=== PATIENT | female | born 1950 | race Caucasian/White ===

== ENCOUNTER 2016-10-07 20:35 | Outpatient (CLI) | payer MEDICARE ==
[~2016-10-07 20:35] MED LIST: ACHD5005 PO; ADV1DS; ALBU17AE23; ALBU17AE23 IH; AMT50T; AZIT-21 PO; AZTH250C PO; BACL10TA; BACL10TA PO; BCL10T; BUME1TAB4 PO; CALC-656 PO; CALC-754 PO; CEFP200T2 PO; CEFP500T4 PO; CEPH500C PO; CFP200T PO; CHOL20002 PO; CHRO1000 PO; CITA10TA12 PO; CITA20TA7 PO; CLAR-19; CLIN300C3 PO; CLON1TAB36; CLON1TAB36 PO; CPR500T PO; CYAN500T44 PO; Coumadin PO; DCS100C PO; DICY10CA26; DIVA500T PO; DOXE25CA2 PO; DOXY-182 PO; DULO30CA; DULO60CA6 PO; DVL500TEC; Duloxetine Hcl PO; FAMO20TA5 PO; FLC1T; FLC1T PO; FLINTSTONE1 TAB.CHE4; FLT05NA16; FLT05NA16 NSEACH; FLUC50TA PO; FLUT12AE4; FLUT12AE4 IH; FLUT16SP22 NS; FLUT1DIS26 IH; FLUT1DIS26 INH; FLX20C; FOLI1TAB24 PO; FORSKOLIN PO; FRSM40T; FURO40TA4; FURO40TA4 PO; GABA-488 PO; GABA300C PO; GABA300T; GARCINIA CAMBOGIA PO; GBPN100C PO; GBPN300C PO; GBPN400C PO; GBPN600T; HERB1CAP2 PO; HYDR-2997 PO; HYDR-34; HYDR-34 PO; HYDR-3812 PO; HYDR-757 PO; HYDR118S10 PO; HYDR1CAP2 PO; IPRA3AMP IH; KCL20TCR; KCL20TCR PO; L.AC1CAP6 PO; LEVO200T6 PO; LEVO250T7 PO; LEVO25TA5 PO; LEVO500T80 PO; LEVO750T24 PO; LINA145C PO; LISI20TA; LISI20TA2 PO; LISI5TAB14; LSNP20T; LVT.05T PO; LVT.1T PO; MAGN400T6 PO; METF1000 PO; METF500T4 PO; METH4TAB PO; METO-272 PO; METO10TA3; METO10TA3 PO; METO5TAB38 PO; MMT17NA NS; MORP60TA12 PO; MORP60TA28 PO; MOXI400T2 PO; MTP50T PO; MULT-608 PO; MULT-68 PO; MULT1CAP27 PO; NIAC-4 PO; NIAC500T24 PO; NITR0.3T6 SL; NITR0.4T SL; NITR0.4T39 SL; NTR.4SL; NTR.4SL SL; OMEG1CAP58 PO; OMEP10CA4 PO; OMEP20CA12 PO; OMEP20CA6 PO; OMEP40CA36 PO; ONDA4TAB10 PO; OXC20TCR; OXYC-12 PO; OXYC10TA8; OXYC1TAB95 PO; OXYC20TA63; OXYC5SOL19 PO; OXYGEN; PANT40TA; PANT40TA3 PO; PENI250T4 PO; PERCOCET; PIOG15TA22 PO; PIOG15TA9 PO; POTA20PA3 PO; POTA20TA15 PO; PRD10T; PRD10T PO; PRD20T PO; RNT150T; RNT150T PO; RT-ALBUINH IH; SCR1T1 PO; SIME125T PO; SPIR25TA PO; SPIR25TA3 PO; SPIR50TA2 PO; SULF1TAB38 PO; TIOT18CA IH; TIOT18CA2 IH; TRAM50TA2 PO; TRAZ100T92 PO; TRAZ150T42 PO; TRZ100T PO; VENTOLIN INHALER; VITA150T PO; WARF-48 PO; WARF2.5T82 PO; WARF3TAB6 PO; WARF4TAB PO; WRF2.5T; WRF2.5T PO; WRF5T PO
== END 2016-10-08 06:35 | disposition home or self-care (01) ==
LOC: SLEEP 20:35
PROVIDERS: ATTEND Nurse Practitioner Family
DX: G47.33 Obstructive sleep apnea (adult) (pediatric) (principal)
CPT/HCPCS: 95811

== ENCOUNTER → 2016-10-17 | Outpatient (CLI) | payer MEDICARE ==
--- NOTE | 2016-10-18 20:53 | Diagnostic Imaging Report ---
Bilateral screening mammogram. The current study was also evaluated with a Computer Aided Detection (CAD) system. INDICATION: Screening. No current complaints stated on the questionnaire. COMPARISON: 09/26/2013. FINDINGS: The breasts are composed of scattered fibroglandular densities. There are occasional benign-appearing calcifications. No mass, architectural distortion or suspicious cluster of calcifications seen. Allowing for technique and positional differences, no suspicious change is seen. IMPRESSION: No significant change. ACR BI-RADS Category 2: Benign findings. Result letter will be mailed to the patient. Note: At least 10% of breast cancer is not imaged by mammography. Dictated by: Dictated on workstation # [id number]
== END ==
LOC: RAD 14:43
PROVIDERS: ATTEND Family Medicine
DX: Z12.31 Encounter for screening mammogram for malignant neoplasm of breast (principal)
CPT/HCPCS: 77067

== ENCOUNTER → 2018-05-23 | Outpatient (CLI) | payer MEDICARE ==
[~2018-05-23] MED LIST changes: -CITA20TA7 PO; +CITA20TA9 PO; -HYDR-3812 PO; +HYDR-4226 PO; -HYDR-757 PO; -IPRA3AMP IH; +IPRA3AMP31 IH; +METF-397 PO; +METF-399 PO; -METF1000 PO; -METF500T4 PO; -METO-272 PO; +METO-370 PO; -PIOG15TA22 PO; +PIOG15TA67 PO; +RT-ALBUTEROL SULF 2.5 MG/3 ML PRE-MIX VIAL INH ONE; -SPIR25TA3 PO; +SPIR25TA5 PO; -SPIR50TA2 PO; +SPIR50TA4 PO; +TRAZ-190 PO; -TRAZ100T92 PO; +WARF3TAB56 PO; -WARF3TAB6 PO
== END ==
LOC: RT 11:42
PROVIDERS: ATTEND Nurse Practitioner Family
DX: J45.909 Unspecified asthma, uncomplicated (principal); J44.9 Chronic obstructive pulmonary disease, unspecified; R09.02 Hypoxemia; G47.33 Obstructive sleep apnea (adult) (pediatric); R06.02 Shortness of breath
CPT/HCPCS: 94060; 94726; 94729

== ENCOUNTER → 2018-11-23 | Outpatient (CLI) | payer MEDICAID, MEDICARE ==
[~2018-11-23] MED LIST changes: -RT-ALBUTEROL SULF 2.5 MG/3 ML PRE-MIX VIAL INH ONE
[2018-11-23 10:20] LABS: BASOPHILS % (AUTO) 0 % (0-10); EOSINOPHILS # (AUTO) 0.2 10^3/uL (0.0-0.3); EOSINOPHILS % (AUTO) 3 % (0-10); HEMATOCRIT 36 % (35-52); HEMOGLOBIN 11.6 G/DL (11.5-16.0); LYMPHOCYTES # (AUTO) 1.1 X 10^3 (1.0-4.0); LYMPHOCYTES % (AUTO) 22 % (12-44); MEAN CORPUSCULAR HEMOGLOBIN 33 PG (25-34); MEAN CORPUSCULAR HGB CONC 32 G/DL (32-36); MEAN CORPUSCULAR VOLUME 103 FL (80-99); MEAN PLATELET VOLUME 9.5 FL (7.4-10.4); MONOCYTES # (AUTO) 0.4 X 10^3 (0.0-1.0); MONOCYTES % (AUTO) 9 % (0-12); NEUTROPHILS # (AUTO) 3.3 X 10^3 (1.8-7.8); NEUTROPHILS % (AUTO) 66 % (42-75); PLATELET COUNT 178 10^3/uL (130-400); RED CELL DISTRIBUTION WIDTH 14.3 % (10.0-14.5)
[2018-11-23 10:39] LABS: ALBUMIN 4.1 GM/DL (3.2-4.5); BILIRUBIN,TOTAL 0.5 MG/DL (0.1-1.0); CALCIUM 8.9 MG/DL (8.5-10.1); CREATININE SERUM 1.27 MG/DL (0.60-1.30); MAGNESIUM 1.8 MG/DL (1.8-2.4); POTASSIUM 3.8 MMOL/L (3.6-5.0)
[2018-11-23 10:45] LABS: ERYTHROCYTE SEDIMENTATION RATE 44 MM/HR (0-30)
== END ==
LOC: CARD 09:47
PROVIDERS: ATTEND Internal Medicine Cardiovascular Disease
DX: R00.2 Palpitations (principal); R06.02 Shortness of breath; G47.33 Obstructive sleep apnea (adult) (pediatric); N18.3 Chronic kidney disease, stage 3 (moderate); J84.17 Other interstitial pulmonary diseases with fibrosis in diseases classified elsewhere
CPT/HCPCS: 36415; 80053; 83735; 84443; 85025; 85652; 93225; 93226

== ENCOUNTER → 2018-11-27 | Outpatient (CLI) | payer MEDICAID, MEDICARE | LOC: CARD 12:50 | PROVIDERS: ATTEND Internal Medicine Cardiovascular Disease | DX: R00.2 Palpitations (principal); R06.02 Shortness of breath; G47.33 Obstructive sleep apnea (adult) (pediatric); N18.3 Chronic kidney disease, stage 3 (moderate); J84.17 Other interstitial pulmonary diseases with fibrosis in diseases classified elsewhere | CPT/HCPCS: 93306 ==

== ENCOUNTER → 2019-04-23 | Outpatient (CLI) | payer MEDICARE, MEDICAID ==
[~2019-04-23] MED LIST changes: -BUME1TAB4 PO; +BUME1TAB8 PO; +CATHETER FLUSH 10 ML SYR IV PRN; +REGADENOSON 0.4 MG/5 ML SYR (LEXISCAN) IV ONE
[2019-04-23 13:02] VITALS: BP 154/92
--- NOTE | 2019-04-26 15:56 | STRESS TEST ---
DATE OF SERVICE: 04/23/2019 RESTING AND POST REGADENOSON TECHNETIUM-99M TETROFOSMIN SPECT CT IMAGING ORDERING PHYSICIAN: Dr. Ospina. PRIMARY PHYSICIAN: ABAD Almeida Baseline images were carried out after injection of 10.97 mCi of technetium-99m Tetrofosmin. This was followed by 0.4 mg regadenoson and 32.6 mCi of technetium-99m Tetrofosmin for stress imaging. The electrocardiogram showed sinus rhythm at baseline. The electrocardiogram did not change significantly with regadenoson infusion. Review of images at rest and following stress does not indicate any distinct perfusion defects consistent with significant myocardial ischemia or infarction. Gated images show normal global left ventricular systolic function with normal regional wall motion. Left ventricular ejection fraction is calculated to be 69%. Left ventricular end diastolic volume 63 mL. TID is absent (1.02). CONCLUSIONS: 1. This study does not indicate significant myocardial ischemia or infarction. 2. Normal regional wall motion. 3. Normal global left ventricular systolic function with a calculated ejection fraction of 69%. Job ID: [id number] DocumentID: [id number] Dictated Date: 04/26/2019 14:47:23 Executive Associate Date: 04/26/2019 15:55:32 Dictated By: ZAK OSPINA MD, MA, FACP, FACC,
== END ==
LOC: CARD 11:07
PROVIDERS: ATTEND Internal Medicine Cardiovascular Disease
DX: G47.33 Obstructive sleep apnea (adult) (pediatric) (principal); R00.2 Palpitations; R06.02 Shortness of breath
CPT/HCPCS: 78452; 93017

== ENCOUNTER 2019-05-29 12:35 | Emergency (ER) | payer MEDICARE, MEDICAID ==
[~2019-05-29] VITALS: Ht 165.1 cm; Wt 115.0 kg
[~2019-05-29 12:35] MED LIST changes: -CATHETER FLUSH 10 ML SYR IV PRN; -REGADENOSON 0.4 MG/5 ML SYR (LEXISCAN) IV ONE
[2019-05-29] MEDS ORDERED: KETOROLAC 30 MG/ML VIAL IM STA (13:24)
--- NOTE | 2019-05-29 13:31 | NUR ---
Techs in room for ultrasound at this time.
--- NOTE | 2019-05-29 13:42 | ED Lower Extremity ---
General Chief Complaint: Lower Extremity Stated Complaint: R LEG PAIN Nursing Triage Note: Ambulatory with walker. Pt reports having SI joint fused approximately one month ago. Pt c/o pain that begins in glute that goes through knee and down to calf. Pt reports pain was periodic after surgery, and pain is now constant and unbearable. Pt reports taking baclofen, and Percocet 10 mg at 0600 with no relief. Pt reports calling Dr. Manuel and PCP and was told to come to ED. Nursing Sepsis Screen: No Definite Risk Source: patient Exam Limitations: no limitations (FLAVIA ZAVALA) History of Present Illness Date Seen by Provider: May 29, 2019 Time Seen by Provider: 13:05 Initial Comments This is a 68 y/o female who presents to the ED with 1.5 wks of RLE pain. She describes the pain as a "deep, intense and constant" and located above and bellow the knee. States exacerbation of pain with touch but not with movement. Reports she has been taking Percocet and Baclofen Q6hrs + ice pack and elevation with no relief. Notes her pain increased since yesterday [facility] and [facility] around more than she usually does. Denies any locking sensation or crepitus in the knee. She has had ortho surgery 4 wks ago to "fuse my SI joint on the Right" any has had decreased activity level since then. Has followed up with her surgeon a week ago regarding her pain; they did an U/S of the leg though she reports she "never got the result back and assumed it wasn't a blood clot". After persistent pain, she reorts she again called her surgeon and PCP and was told to go to the ED. Pt has had multiple PEs in the past and was started back on Warfarin last week. Also notes she has had an episode of fever and chills a few days ago which was self limited. Also says she has had increase SOB and cough for which she was given steroids by her PCP with not much relief. Onset: last week Pain/Injury Location: right leg Modifying Factors: Worse With Cold Therapy, Worse With Immobilization, Worse With Pain Medication (FLAVIA ZAVALA) Initial Comments Here with report of pain to the posterior lower leg on the right in the area of the of her calf muscle. Pain seems to radiate up to the knee. Does have history of DVT but is on warfarin. She also has a Joanne filter in place. She did undergo surgery about 4 weeks ago on her sacrum. Does have history of left knee replacement. This right knee feels bad, like her left knee did but not near as b ad. Method of Injury: other (no identified trauma or injury) Modifying Factors: Worse With Movement; Improves With Other (not relieved by ice packs or pain medication.) (TYREE ERIC MD) Allergies and Home Medications Allergies Coded Allergies: Aripiprazole (Verified Allergy, Severe, 09/07/11) topiramate (Verified Allergy, Severe, 09/07/11) Diclofenac (Verified Allergy, Mild, NAUSEA, 09/07/11) DIZZINESS, N/V, FAINTING, REALLY ILL Home Medications Albuterol Sulfate 18 Gm Hfa.aer.ad, 2 PUFF IH Q4H PRN for SHORTNESS OF BREATH, (Reported) Cholecalciferol (Vitamin D3) 2,000 Unit Capsule, 2,000 UNIT PO DAILY, (Reported) Citalopram Hydrobromide 20 Mg Tablet, 20 MG PO DAILY, (Reported) Fluticasone/Salmeterol 1 Disk Inhp, 1 PUFF INH BID, (Reported) LAST FILLED 06-27-15 FOR 90 DAY SUPPLY Folic Acid 1 Mg Tablet, 1 MG PO DAILY, (Reported) Gabapentin 300 Mg Capsule, 300 MG PO TID, (Reported) Herbal Drugs 1 Each Capsule, 1 CAP PO DAILY PRN for REGULARITY, (Reported) Hydrocodone Bit/Acetaminophen 1 Each Tablet, 1 TAB PO TID PRN for PAIN, (Reported) L.acidoph & Paracasei,B.lactis 1 Each Capsule, 1 CAP PO DAILY, (Reported) Levothyroxine Sodium 200 Mcg Tablet, 200 MCG PO DAILY, (Reported) TAKES ALONG WITH 25MCG TABLET Levothyroxine Sodium 25 Mcg Tablet, 25 MCG PO DAILY, (Reported) TAKES ALONG WITH 200MCG TABLET Linaclotide 145 Mcg Capsule, 145 MCG PO DAILY PRN for CONSTIPATION, (Reported) Magnesium Oxide 400 Mg Tablet, 400 MG PO BID, (Reported) Metoprolol Succinate 50 Mg Tab.er.24h, 50 MG PO DAILY, (Reported) Mometasone Furoate 17 Gm Naspr, 2 SPRAY NS BID, (Reported) LAST FILLED 06-27-15 FOR 90 DAY SUPPLY Niacin 500 Mg Tab.er.24h, 500 MG PO HS, (Reported) Nitroglycerin 0.4 Mg Tab.subl, 0.4 MG SL UD PRN for CHEST PAIN, (Reported) [place]-3 Fatty Acids/Fish Oil 1 Each Capsule, 1,000 MG PO DAILY, (Reported) Ondansetron HCl 4 Mg Tablet, 4 MG PO Q4H PRN for NAUSEA/VOMITING, (Reported) Oxycodone HCl 5 Mg/5 Ml Solution, 5-10 ML PO EVERY 4-6 HOURS PRN for PAIN, (Reported) Pantoprazole Sodium 40 Mg Tablet.dr, 40 MG PO DAILY, (Reported) Potassium Chloride 20 Meq Tab.er.prt, 40 MEQ PO BID, (Reported) TAKES 2 (20MEQ) TABLETS Tiotropium [place] 1 Inh Aerp, 1 CAP IH DAILY, (Reported) LAST FILLED 06-27-15 FOR 90 DAY SUPPLY Trazodone HCl 100 Mg Tablet, 200 MG PO HS, (Reported) TAKE 2 (100MG) TABS Vitamin B Complex & Vit C No.4 150 Mg Tablet, 150 MG PO DAILY, (Reported) Warfarin Sodium 5 Mg Tablet, 5 MG PO SuWeFr, (Reported) Warfarin Sodium 3 Mg Tablet, 3 MG PO MoTuThSa, (Reported) [Forskolin] , 1 CAP PO DAILY, (Reported) Patient Home Medication List Home Medication List Reviewed: Yes (TYREE ERIC MD) Review of Systems Constitutional: No chills, No diaphoresis, No fever, No malaise Respiratory: cough (chronic); No hemoptysis; short of breath (chronic) Cardiovascular: No chest pain, No edema, No palpitations Musculoskeletal: No back pain, No gout; other (RLE pain) Skin: No change in color, No dryness, No rash Psychiatric/Neurological: Denies Anxiety, Denies Depressed (FLAVIA ZAVALA) Cardiovascular: No chest pain, No edema (TYREE ERIC MD) All Other Systems Reviewed Negative Unless Noted: Yes (TYREE ERIC MD) Past Ofeotbd-Qeobtd-Gpuhth Hx Past Med/Social Hx: Reviewed Nursing Past Med/Soc Hx (TYREE ERIC MD) Patient Social History Alcohol Use: Denies Use Recreational Drug Use: Yes (HX OF COCAINE ABUSE ET POLYSUBSTANCE ABUSE IN THE 70'S ET 80'S) Smoking Status: Never a Smoker 2nd Hand Smoke Exposure: No Recent Foreign Travel: No Contact w/Someone Who Travel: No Recent Infectious Disease Expo: No Recent Hopitalizations: Yes [facility]fused SI joint) [facility] Immunizations Up To Date Tetanus Booster (TDap): Unknown Date of Pneumonia Vaccine: Mar 24, 2015 Date of Influenza Vaccine: Jul 24, 2015 ([facility] Past Medical History Surgeries: Yes (LEFT KNEE- CANCER, LIPOSARCOMA, LEFT FOOT- NEUROMA X2, IN SITU CA ON BACK. ) Orthopedic Respiratory: Yes (CPAP, HX 6 PE'S, PULM HTN, HAS O2 BUT HASNT NEEDED IT) Asthma, Pulmonary Embolism, Sleep Apnea, COPD Currently Using CPAP: Yes Cardiac: Yes (CHF IN REMISSION) Neurological: Yes (stroke x2-R VOCAL CORD, MEMORY, WORD RECALL EFFECTED) Stroke Reproductive Disorders: No (HX OF HYSTERECTOMY- OVARIES REMOVED) Sexually Transmitted Disease: No HIV/AIDS: No Kidney Infection Gastrointestinal: Yes Gastroesophageal Reflux, Diverticulosis, Chronic Diarrhea, Hiatal Hernia Musculoskeletal: Yes (SPINAL STENOSIS) Arthritis, Fibromyalgia, Chronic Back Pain Endocrine: Yes Hypothyroidsim, Diabetes, Non-Insulin dep Loss of Vision: Bilateral Hearing Impairment: Denies Cancer: Yes (MYLOMA, LIPOSARCOMA) Melanoma, Thyroid Psychosocial: Yes ( ) Anxiety, Depression Integumentary: No Blood Disorders: Yes (P.E., HX OF ANEMIA) Adverse Reaction/Blood Tranf: No (HAS HAD BLOOD WITH NO REACTION) ([facility]) Family Medical History Reviewed Nursing Family Hx (TYREE ERIC MD) Physical Exam Vital Signs Vital Signs - First Documented 05/29/19 12:39 Temp 37.1 Pulse 99 Resp 18 B/P (MAP) 149/78 (101) Pulse Ox 91 O2 Delivery Room Air (TYREE ERIC MD) Vital Signs Capillary Refill : Less Than 3 Seconds ([facility]AV[facility]) Height, Weight, BMI Height: 5'5.00" Weight: 335lbs. 0.0oz. 151.673378gd; 42.00 BMI Method:Stated General Appearance: WD/WN, no apparent distress HEENT: PERRL/EOMI, normal ENT inspection Neck: non-tender, full range of motion, supple, normal inspection Cardiovascular: normal peripheral pulses, regular rate, rhythm, no edema, no gallop, no JVD, no murmur Respiratory: chest non-tender, lungs clear, normal breath sounds, no respiratory distress, no accessory muscle use Back: normal inspection, no CVA tenderness Hips: bilateral hip non-tender Legs: bilateral leg normal inspection, bilateral leg normal range of motion, bilateral leg no evidence of injury; right leg nodules (few small nodule, R lateral calf), right leg pain, right leg soft tissue tenderness Knees: bilateral knee non-tender, bilateral knee normal inspection, bilateral knee normal range of motion, bilateral knee no evidence of injury Ankles: bilateral ankle non-tender, bilateral ankle normal inspection, bilateral ankle normal range of motion, bilateral ankle no evidence of injury Feet: bilateral foot non-tender, bilateral foot normal inspection, bilateral foot normal range of motion, bilateral foot no evidence of injury Neurologic/Tendon: normal sensation, normal motor functions, responds to pain Neurologic/Psychiatric: alert, oriented x 3 Skin: normal color, warm/dry Lymphatic: no adenopathy (FLAVIA ZAVAL[facility]) General Appearance: WD/WN, no apparent distress Cardiovascular: regular rate, rhythm, no murmur Respiratory: lungs clear, normal breath sounds Legs: right leg nodules, right leg pain, right leg soft tissue tenderness, right leg other (pain to the upper calf. No significant swelling posterior right leg.) Neurologic/Tendon: normal sensation, normal motor functions, responds to pain Neurologic/Psychiatric: alert, oriented x 3 Skin: normal color, warm/dry (TYREE ERIC MD) Progress/Results/Core Measures Results/Orders Lab Results Laboratory Tests Test 05/29/19 14:20 Range/Units White Blood Count 6.5 4.3-11.0 10^3/uL Red Blood Count 3.83 L 4.35-5.85 10^6/uL Hemoglobin 12.0 11.5-16.0 G/DL Hematocrit 38 35-52 % Mean Corpuscular Volume 99 80-99 FL Mean Corpuscular Hemoglobin 31 25-34 PG Mean Corpuscular Hemoglobin Concent 32 32-36 G/DL Red Cell Distribution Width 13.4 10.0-14.5 % Platelet Count 253 130-400 10^3/uL Mean Platelet Volume 10.1 7.4-10.4 FL Neutrophils (%) (Auto) 68 42-75 % Lymphocytes (%) (Auto) 19 12-44 % Monocytes (%) (Auto) 8 0-12 % Eosinophils (%) (Auto) 5 0-10 % Basophils (%) (Auto) 0 0-10 % Neutrophils # (Auto) 4.4 1.8-7.8 X 10^3 Lymphocytes # (Auto) 1.2 1.0-4.0 X 10^3 Monocytes # (Auto) 0.5 0.0-1.0 X 10^3 Eosinophils # (Auto) 0.3 0.0-0.3 10^3/uL Basophils # (Auto) 0.0 0.0-0.1 10^3/uL Erythrocyte Sedimentation Rate 28 0-30 MM/HR Prothrombin Time 27.2 H 12.2-14.7 SEC INR Comment 2.4 H 0.8-1.4 Activated Partial Thromboplast Time 93 H 24-35 SEC Sodium Level 143 135-145 MMOL/L Potassium Level 4.0 3.6-5.0 MMOL/L Chloride Level 102 98-107 MMOL/L Carbon Dioxide Level 32 21-32 MMOL/L Anion Gap 9 5-14 MMOL/L Blood Urea Nitrogen 19 H 7-18 MG/DL Creatinine 1.24 0.60-1.30 MG/DL Estimat Glomerular Filtration Rate 43 BUN/Creatinine Ratio 15 Glucose Level 103 70-105 MG/DL Calcium Level 8.8 8.5-10.1 MG/DL Corrected Calcium 9.0 8.5-10.1 MG/DL Total Bilirubin 0.5 0.1-1.0 MG/DL Aspartate Amino Transf (AST/SGOT) 19 5-34 U/L Alanine Aminotransferase (ALT/SGPT) 16 0-55 U/L Alkaline Phosphatase 130 40-136 U/L C-Reactive Protein High Sensitivity 1.30 H 0.00-0.50 MG/DL Total Protein 6.4 6.4-8.2 GM/DL Albumin 3.7 3.2-4.5 GM/DL (TYREE ERIC MD) My Orders Orders - TYREE ERIC MD Us Venous Lower Ext Rt (05/29/19 13:17) Protime With Inr (05/29/19 13:17) Partial Thromboplastin Time (05/29/19 13:17) Cbc With Automated Diff (05/29/19 13:17) Comprehensive Metabolic Panel (05/29/19 13:17) Hs C Reactive Protein (05/29/19 13:17) Erythrocyte Sedimentation Rate (05/29/19 13:17) Ketorolac Injection (Toradol Injection) (05/29/19 13:24) Ed Iv/Invasive Line Start (05/29/19 14:13) Knee, Right, 3 Views (05/29/19 14:13) (TYREE ERIC MD) Vital Signs/I&O 05/29/19 12:39 Temp 37.1 Pulse 99 Resp 18 B/P (MAP) 149/78 (101) Pulse Ox 91 O2 Delivery Room Air (TYREE ERIC MD) Blood Pressure Mean: 101 POS Progress Progress Note : Time: 13:06 Progress Note 1306: Seen and Evaluated. Presentation is suspicious for DVT, Hatch's cyst, infection, strain. Will order Venous Doppler of RLE, CBC, CRP and sed rate, coag studies and ketorolac 30 IM for pain. Will Monitor. 1345: U/S was negative for DVT or Bakers cyst or any other abnormalities. Pending labs. Will continue to monitor. 1411:Informed pt about U/S results. Will order XR to evaluate for any arthritic changes or bony abnormalities in the Knee (FLAVIA ZAVALA) Progress Note : Progress Note Have seen and evaluated the patient and agree with above except as indicated. I have directed the plan of care. Labs, ultrasound right lower extremity and ketorolac 30 mg IM for pain. Ultrasound negative. We will get x-ray of the right knee. We'll draw difficult in this patient and ultimately her port was accessed to allow for blood draw. 1508: CBC unremarkable and she does have therapeutic INR. 1530: No acute findings. Patient overall doing okay. Family here. We did discuss outpatient options. Discharged home with return precautions. Patient verbalize understanding instructions and agreement with plan. (TYREE ERIC MD) Diagnostic Imaging Diagonstic Imaging: Xray, Ultrasound Plain Films/CT/US/NM/MRI: leg, knee Comments NAME: ANGEL SANCHEZ [facility] REC#: [id number] PT STATUS: REG ER : 1950 PHYSICIAN: TYREE ERIC MD ADMIT DATE: 05/29/19/ER POSDate of Exam: 05/29/19 US VENOUS LOWER EXT RT INDICATION: Right leg pain. Right leg venous Doppler study was performed in the routine fashion with color flow Doppler and waveform analysis. FINDINGS: The right common femoral vein, superficial femoral vein, popliteal vein and visualized portion of the tibial veins show normal compressibility and venous flow patterns. There is normal augmentation. IMPRESSION: No evidence of deep vein thrombosis of the major veins of the right leg. Dictated by: Dictated on workstation # [id number] Dict: 05/29/191406 Trans: 05/29/191406 Interpreted by: ESTHER ANDRE MD Electronically signed by: ESTHER ANDRE MD 05/29/191406 [facility], [facility]. POS [place], [place] POS NAME: ANGEL SANCHEZ [facility] REC#: [id number] PT STATUS: REG ER : 1950 PHYSICIAN: TYREE ERIC MD ADMIT DATE: 05/29/19/ER POSDate of Exam:05/29/19 KNEE, RIGHT, 3 VIEWS INDICATION: Knee pain. COMPARISON: None. FINDINGS: Three views of the right knee joint demonstrate no acute fracture or dislocation. No focal osseous lesions are seen. No significant joint effusion is seen. The surrounding soft tissue structures are unremarkable. There are no radiopaque foreign bodies. IMPRESSION: 1. No acute fractures or dislocations of the right knee joint. Dictated on workstation # [id number] Dict: 05/29/19 1447 Trans: 05/29/19 1449 [id number] Interpreted by: BUCK ROBERSON MD Electronically signed by: (FLAVIA ZAVALA [facility]) Departure Impression Primary Impression: Pain in right lower leg Disposition: 01 HOME, SELF-CARE Condition: Stable Departure-Patient Inst. Decision time for Depature: 15:31 (TYREE ERIC MD) Referrals: NO,LOCAL PHYSICIAN (PCP) Primary Care Physician AUSTYN LOZADA (Family) Primary Care Physician Patient Instructions: Muscle and Bone Pain (DC) Add. Discharge Instructions: All discharge instructions reviewed with patient and/or family. Voiced understanding. Continue home medications as previously prescribed. You may add an additional Tylenol/acetaminophen 1 tablet with each dose of your Percocet up to every 6 hours but do not exceed 4000 mg of acetaminophen and 24 hours. You may use o [id number] preparations such as aspercream with lidocaine or Icy-Hot with lidocaine topical per package directions. Rest your leg. Follow-up with your Dr. in a few days for recheck. Return for worse pain, fever, swelling, weakness, breathing problems or other concerns as needed. FLAVIA ZAVALA MED STUD May 29, 2019 13:42 TYREE DOUGLASS MD May 29, 2019 15:09 POS
--- NOTE | 2019-05-29 14:09 | Diagnostic Imaging Report ---
INDICATION: Right leg pain. Right leg venous Doppler study was performed in the routine fashion with color flow Doppler and waveform analysis. FINDINGS: The right common femoral vein, superficial femoral vein, popliteal vein and visualized portion of the tibial veins show normal compressibility and venous flow patterns. There is normal augmentation. IMPRESSION: No evidence of deep vein thrombosis of the major veins of the right leg. Dictated by: Dictated on workstation # [id number]
[2019-05-29 14:41] LABS: BASOPHILS % (AUTO) 0 % (0-10); EOSINOPHILS # (AUTO) 0.3 10^3/uL (0.0-0.3); EOSINOPHILS % (AUTO) 5 % (0-10); HEMATOCRIT 38 % (35-52); LYMPHOCYTES # (AUTO) 1.2 X 10^3 (1.0-4.0); LYMPHOCYTES % (AUTO) 19 % (12-44); MEAN CORPUSCULAR HEMOGLOBIN 31 PG (25-34); MEAN CORPUSCULAR HGB CONC 32 G/DL (32-36); MEAN CORPUSCULAR VOLUME 99 FL (80-99); MEAN PLATELET VOLUME 10.1 FL (7.4-10.4); MONOCYTES # (AUTO) 0.5 X 10^3 (0.0-1.0); MONOCYTES % (AUTO) 8 % (0-12); NEUTROPHILS # (AUTO) 4.4 X 10^3 (1.8-7.8); NEUTROPHILS % (AUTO) 68 % (42-75); PLATELET COUNT 253 10^3/uL (130-400); RED CELL DISTRIBUTION WIDTH 13.4 % (10.0-14.5); WHITE BLOOD COUNT 6.5 10^3/uL (4.3-11.0)
--- NOTE | 2019-05-29 14:49 | Diagnostic Imaging Report ---
INDICATION: Knee pain. COMPARISON: None. FINDINGS: Three views of the right knee joint demonstrate no acute fracture or dislocation. No focal osseous lesions are seen. No significant joint effusion is seen. The surrounding soft tissue structures are unremarkable. There are no radiopaque foreign bodies. IMPRESSION: 1. No acute fractures or dislocations of the right knee joint. Dictated by: Dictated on workstation # [id number]
[2019-05-29 14:54] LABS: INR 2.4 (0.8-1.4); PROTHROMBIN TIME PATIENT 27.2 SEC (12.2-14.7)
[2019-05-29 15:00] LABS: ALBUMIN 3.7 GM/DL (3.2-4.5); BILIRUBIN,TOTAL 0.5 MG/DL (0.1-1.0); CALCIUM 8.8 MG/DL (8.5-10.1); CREATININE SERUM 1.24 MG/DL (0.60-1.30); TOTAL PROTEIN 6.4 GM/DL (6.4-8.2)
[2019-05-29 15:03] LABS: ERYTHROCYTE SEDIMENTATION RATE 28 MM/HR (0-30)
[2019-05-29 15:43] VITALS: BP 118/77
[2019-05-29] MEDS ORDERED: HEParin (CENTRAL IV FLUSH) 500 UNIT/5 ML SYR IV ONE (15:45)
== END 2019-05-29 15:43 | disposition home or self-care (01) ==
LOC: EDUNIT# 12:35 → ER 12:36
DX: M79.661 Pain in right lower leg (principal); J44.9 Chronic obstructive pulmonary disease, unspecified; I50.9 Heart failure, unspecified; E11.9 Type 2 diabetes mellitus without complications; G47.30 Sleep apnea, unspecified; F41.9 Anxiety disorder, unspecified; F32.9 Major depressive disorder, single episode, unspecified; D64.9 Anemia, unspecified; K21.9 Gastro-esophageal reflux disease without esophagitis; M79.7 Fibromyalgia; E03.9 Hypothyroidism, unspecified; Z85.820 Personal history of malignant melanoma of skin; Z85.850 Personal history of malignant neoplasm of thyroid; Z90.710 Acquired absence of both cervix and uterus; Z99.89 Dependence on other enabling machines and devices; Z79.01 Long term (current) use of anticoagulants; Z86.711 Personal history of pulmonary embolism; Z96.652 Presence of left artificial knee joint; Z88.8 Allergy status to other drugs, medicaments and biological substances; Z79.51 Long term (current) use of inhaled steroids
CPT/HCPCS: 36415; 73562; 80053; 85025; 85610; 85652; 85730; 86141

== ENCOUNTER → 2020-09-29 | Outpatient (CLI) | payer MEDICARE, MEDICAID ==
[~2020-09-29] VITALS: Ht 165 cm; Wt 130.0 kg
[~2020-09-29] MED LIST changes: +CATHETER FLUSH 10 ML SYR IV PRN; -FOLI1TAB24 PO; +FOLI1TAB33 PO; -MAGN400T6 PO; +MAGN400T8 PO; -METO-370 PO; +METO50TA7 PO; +OMEP40CA27 PO; -OMEP40CA36 PO; +ONDA-105 PO; -ONDA4TAB10 PO; -PANT40TA3 PO; +PANT40TA52 PO; +REGADENOSON 0.4 MG/5 ML SYR (LEXISCAN) IV ONE; -TRAZ-190 PO; +TRAZ-227 PO; -WARF2.5T82 PO
[2020-09-29 13:11] VITALS: BP 143/75
== END ==
LOC: CARD 11:00
PROVIDERS: ATTEND Nurse Practitioner Family
DX: I51.7 Cardiomegaly (principal)
CPT/HCPCS: 78452; 93017; 93306; A9502

== ENCOUNTER → 2020-09-29 | Outpatient (CLI) | payer MEDICARE, MEDICAID ==
[~2020-09-29] MED LIST changes: -CATHETER FLUSH 10 ML SYR IV PRN; -REGADENOSON 0.4 MG/5 ML SYR (LEXISCAN) IV ONE
--- NOTE | 2020-09-29 20:16 | Diagnostic Imaging Report ---
INDICATION: Routine screening. COMPARISON is made with prior mammograms from 10/17/2016 and 09/26/2013. 2-D and 3-D bilateral screening mammography was performed with CAD. Both breasts are primarily involutional. No mass or malignant appearing microcalcifications are seen. Infusaport hub in the left axilla is noted. IMPRESSION: BI-RADS Category 1 No mammographic features suspicious for malignancy are identified. Dictated by: Dictated on workstation # [id number]
== END ==
LOC: RAD 13:37
PROVIDERS: ATTEND Nurse Practitioner Family
DX: Z12.31 Encounter for screening mammogram for malignant neoplasm of breast (principal)
CPT/HCPCS: 77063; 77067

== ENCOUNTER → 2020-11-19 | Outpatient (CLI) | payer MEDICARE, MEDICAID ==
[2020-11-19 18:15] LABS: CREATININE SERUM 1.01 MG/DL (0.60-1.30)
--- NOTE | 2020-11-19 19:05 | Diagnostic Imaging Report ---
INDICATION: Dyspnea, pain. EXAMINATION: CTA of the chest with contrast, 11/19/2020. All CT scans use one or more of the following dose optimizing techniques: automated exposure control, MA and/or KvP adjustment based on patient size and exam type or iterative reconstruction. FINDINGS: The lungs demonstrate no acute abnormality. There are no pericardial or pleural effusions. There are no central or proximal segmental pulmonary emboli. Mediastinal structures are unremarkable. Visualized upper abdomen demonstrates an IVC filter, incompletely imaged. There are postoperative changes throughout the upper abdomen surrounding the stomach. There are degenerative findings in the spine with no acute osseous abnormality. IMPRESSION: No pulmonary emboli. Incidental findings otherwise noted. Dictated by: Dictated on workstation # [id number]
== END ==
LOC: RAD 17:37
PROVIDERS: ATTEND Nurse Practitioner Family
DX: Z03.89 Encounter for observation for other suspected diseases and conditions ruled out (principal); M79.609 Pain in unspecified limb; M79.89 Other specified soft tissue disorders; R06.00 Dyspnea, unspecified
CPT/HCPCS: 36415; 71275; 82565; 84520

== ENCOUNTER → 2020-12-01 | Outpatient (CLI) | payer MEDICARE, MEDICAID ==
[~2020-12-01] MED LIST changes: +RT-ALBUTEROL SULF 2.5 MG/3 ML PRE-MIX VIAL INH ONE
== END ==
LOC: RT 13:06
PROVIDERS: ATTEND Nurse Practitioner Family
DX: J45.909 Unspecified asthma, uncomplicated (principal)
CPT/HCPCS: 94060; 94726; 94729

== ENCOUNTER 2021-01-29 16:20 | Emergency (ER) | payer MEDICARE, MEDICAID ==
[~2021-01-29] VITALS: Ht 165.1 cm; Wt 132.0 kg
[~2021-01-29 16:20] MED LIST changes: -OMEP40CA27 PO; +OMEP40CA6 PO; -RT-ALBUTEROL SULF 2.5 MG/3 ML PRE-MIX VIAL INH ONE
[2021-01-29 16:26] VITALS: BP 138/103
[2021-01-29 17:39] LABS: INR 2.2 (0.8-1.4); PROTHROMBIN TIME PATIENT 24.9 SEC (12.2-14.7)
--- NOTE | 2021-01-29 17:40 | Diagnostic Imaging Report ---
INDICATION: Knee pain and swelling since last week. No known injuries. EXAMINATION: Right knee 01/29/2021. COMPARISON: 05/29/2019 FINDINGS: Three views of the knee. There is a small suprapatellar effusion. There is a lucency and irregularity along the inferior pole of the knee which is stable since previous examination perhaps due to an old injury. No new fractures or dislocations appreciated. There are several osseous lesions along the proximal fibula similar to prior imaging and consistent with osteochondromas. IMPRESSION: 1. Chronic findings as described above with no acute osseous abnormalities appreciated. 2. Small joint effusion. Dictated by: Dictated on workstation # [id number]
--- NOTE | 2021-01-29 17:47 | ED Lower Extremity ---
General Chief Complaint: Lower Extremity Stated Complaint: R LEG BACK OF KNEE PAIN Nursing Triage Note: pt ambulatory into ER with obvious discomfort. Pt complains of right knee pain x1 week. Pt denies trauma or injury. PT states that she saw her PCP on monday with out patient ultrasound for rule out of clot. PT states that she has history of clots. Pt states that US was negative. PT states that it feels as if something is broken. She states that pain is at a 8/10. Pt states that it worsens daily. Source: patient Exam Limitations: no limitations History of Present Illness Date Seen by Provider: Jan 29, 2021 Time Seen by Provider: 16:55 Initial Comments Here with report of right knee pain and pain behind the knee. She did have ultrasound done earlier this week as she has history of DVTs and pulmonary emboli. She is on warfarin and did have elevated INR earlier this week. She has skipped 1 dose in an effort to correct that. Ultrasound did not show any DVT per the patient. She is here because pain is increasingly [id number]. She has changed from using a cane to wheeled walker with chair due to the pain. 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 Denies any recent falls or other injury. Onset: last week Severity: moderate Pain/Injury Location: right knee Method of Injury: unknown Modifying Factors: Improves With Immobilization; Worse With Movement Allergies and Home Medications Allergies Coded Allergies: aripiprazole (Verified Allergy, Severe, 09/07/11) topiramate (Verified Allergy, Severe, 09/07/11) diclofenac (Verified Allergy, Mild, NAUSEA, 09/07/11) DIZZINESS, N/V, FAINTING, REALLY ILL Home Medications Albuterol Sulfate 18 Gm Hfa.aer.ad, 2 PUFF IH Q4H PRN for SHORTNESS OF BREATH, (Reported) Cholecalciferol (Vitamin D3) 2,000 Unit Capsule, 2,000 UNIT PO DAILY, (Reported) Citalopram Hydrobromide 20 Mg Tablet, 20 MG PO DAILY, (Reported) Fluticasone/Salmeterol 1 Disk Inhp, 1 PUFF INH BID, (Reported) LAST FILLED 06-27-15 FOR 90 DAY SUPPLY Folic Acid 1 Mg Tablet, 1 MG PO DAILY, (Reported) Gabapentin 300 Mg Capsule, 300 MG PO TID, (Reported) Herbal Drugs 1 Each Capsule, 1 CAP PO DAILY PRN for REGULARITY, (Reported) Hydrocodone Bit/Acetaminophen 1 Each Tablet, 1 TAB PO TID PRN for PAIN, (Reported) Hydrocodone Bit/Acetaminophen 1 Tab Tab, 1 TAB PO Q6H Prescribed by: TYREE ERIC on 01/29/21 1800 L.acidoph & Paracasei,B.lactis 1 Each Capsule, 1 CAP PO DAILY, (Reported) Levothyroxine Sodium 200 Mcg Tablet, 200 MCG PO DAILY, (Reported) TAKES ALONG WITH 25MCG TABLET Levothyroxine Sodium 25 Mcg Tablet, 25 MCG PO DAILY, (Reported) TAKES ALONG WITH 200MCG TABLET Linaclotide 145 Mcg Capsule, 145 MCG PO DAILY PRN for CONSTIPATION, (Reported) Magnesium Oxide 400 Mg Tablet, 400 MG PO BID, (Reported) Metoprolol Succinate 50 Mg Tab.er.24h, 50 MG PO DAILY, (Reported) Mometasone Furoate 17 Gm Naspr, 2 SPRAY NS BID, (Reported) LAST FILLED 06-27-15 FOR 90 DAY SUPPLY Niacin 500 Mg Tab.er.24h, 500 MG PO HS, (Reported) Nitroglycerin 0.4 Mg Tab.subl, 0.4 MG SL UD PRN for CHEST PAIN, (Reported) [place]-3 Fatty Acids/Fish Oil 1 Each Capsule, 1,000 MG PO DAILY, (Reported) Ondansetron HCl 4 Mg Tablet, 4 MG PO Q4H PRN for NAUSEA/VOMITING, (Reported) Oxycodone HCl 5 Mg/5 Ml Solution, 5-10 ML PO EVERY 4-6 HOURS PRN for PAIN, (Reported) Pantoprazole Sodium 40 Mg Tablet.dr, 40 MG PO DAILY, (Reported) Potassium Chloride 20 Meq Tab.er.prt, 40 MEQ PO BID, (Reported) TAKES 2 (20MEQ) TABLETS Prednisone 20 Mg Tab, 40 MG PO DAILY Prescribed by: TYREE ERIC on 01/29/21 1759 Tiotropium [place] 1 Inh Aerp, 1 CAP IH DAILY, (Reported) LAST FILLED 06-27-15 FOR 90 DAY SUPPLY Trazodone HCl 100 Mg Tablet, 200 MG PO HS, (Reported) TAKE 2 (100MG) TABS Vitamin B Complex & Vit C No.4 150 Mg Tablet, 150 MG PO DAILY, (Reported) Warfarin Sodium 5 Mg Tablet, 5 MG PO SuWeFr, (Reported) Warfarin Sodium 3 Mg Tablet, 3 MG PO MoTuThSa, (Reported) [Forskolin] , 1 CAP PO DAILY, (Reported) Patient Home Medication List Home Medication List Reviewed: Yes Review of Systems Constitutional: No chills, No fever Respiratory: no symptoms reported Cardiovascular: no symptoms reported Musculoskeletal: see HPI, joint pain, joint swelling, muscle pain Skin: No change in color, No lesions Psychiatric/Neurological: No Symptoms Reported Past Oxgvzms-Zrdxxj-Ymxoay Hx Patient Social History Tobacco Use?: No Use of E-Cig and/or Vaping dev: No Substance use?: No Alcohol Use?: No Pt feels they are or have been: No Immunizations Up To Date Tetanus Booster (TDap): Unknown Influenza Vaccine Up-to-Date: No; Not Current Second COVID19 Vaccination Cristofer: 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 ) Orthopedic Respiratory: Yes (CPAP, HX 6 PE'S, PULM HTN, HAS O2 BUT HASNT NEEDED IT) Asthma, Pulmonary Embolism, Sleep Apnea, COPD Currently Using CPAP: Yes Cardiac: Yes (CHF IN REMISSION) Neurological: Yes (stroke x2-R VOCAL CORD, MEMORY, WORD RECALL EFFECTED) Stroke Reproductive Disorders: No (HX OF HYSTERECTOMY- OVARIES REMOVED) Sexually Transmitted Disease: No HIV/AIDS: No Kidney Infection Gastrointestinal: Yes Gastroesophageal Reflux, Diverticulosis, Chronic Diarrhea, Hiatal Hernia Musculoskeletal: Yes (SPINAL STENOSIS) Arthritis, Fibromyalgia, Chronic Back Pain Endocrine: Yes Hypothyroidsim, Diabetes, Non-Insulin dep Loss of Vision: Bilateral Hearing Impairment: Denies Cancer: Yes (MYLOMA, LIPOSARCOMA) Melanoma, Thyroid Psychosocial: Yes ( ) Anxiety, Depression Integumentary: No Blood Disorders: Yes (P.E., HX OF ANEMIA) Adverse Reaction/Blood Tranf: No (HAS HAD BLOOD WITH NO REACTION) Family Medical History Reviewed Nursing Family Hx No Pertinent Family Hx Physical Exam Vital Signs Vital Signs - First Documented 01/29/21 16:26 Temp 36.3 Pulse 96 Resp 20 B/P (MAP) 138/103 (115) Pulse Ox 95 O2 Delivery Room Air Capillary Refill : Less Than 3 Seconds Height, Weight, BMI Height: 5'5.00" Weight: 335lbs. 0.0oz. 151.627180qt; 48.00 BMI Method:Stated General Appearance: WD/WN, no apparent distress Cardiovascular: regular rate, rhythm, no murmur Respiratory: lungs clear, normal breath sounds Knees: left knee non-tender, left knee normal inspection, left knee normal range of motion; right knee joint effusion, right knee soft tissue tenderness, right knee swelling Neurologic/Psychiatric: alert, oriented x 3 Skin: normal color, warm/dry Progress/Results/Core Measures Results/Orders Lab Results Laboratory Tests Test 01/29/21 17:22 Range/Units Prothrombin Time 24.9 H 12.2-14.7 SEC INR Comment 2.2 H 0.8-1.4 My Orders Orders - TYREE ERIC MD Knee, Right, 3 Views (01/29/21 17:01) Protime With Inr (01/29/21 17:01) Vital Signs/I&O 01/29/21 16:26 Temp 36.3 Pulse 96 Resp 20 B/P (MAP) 138/103 (115) Pulse Ox 95 O2 Delivery Room Air Blood Pressure Mean: 115 Progress Progress Note : Progress Note Seen and evaluated. X-ray right knee. We will check INR as patient is on Coumadin and she is unsure of her level. Monitor patient. 1755: X-ray reports were read and discussed with the patient. INR 2.2. She will continue her Coumadin dosing. We will initiate outpatient treatment with some pain medicines and steroids given this may be arthritic and reactive in nature. No acute fractures. Discharged home with return precautions. Patient verbalized understanding instructions and agreement with plan. Diagnostic Imaging Diagonstic Imaging: Xray Plain Films/CT/US/NM/MRI: knee Comments [facility] [place], [place] NAME: ANGEL SANCHEZ [facility] REC#: [id number] PT STATUS: REG ER : [id number] PHYSICIAN: TYREE ERIC MD ADMIT DATE: 01/29/21/ER Draft Date of Exam:01/29/21 KNEE, RIGHT, 3 VIEWS INDICATION: Knee pain and swelling since last week. No known injuries. EXAMINATION: Right knee 01/29/2021. COMPARISON: 05/29/2019 FINDINGS: Three views of the knee. There is a small suprapatellar effusion. There is a lucency and irregularity along the inferior pole of the knee which is stable since previous examination perhaps due to an old injury. No new fractures or dislocations appreciated. There are several osseous lesions along the proximal fibula similar to prior imaging and consistent with osteochondromas. IMPRESSION: 1. Chronic findings as described above with no acute osseous abnormalities appreciated. 2. Small joint effusion. Dictated on workstation # [id number] Dict: 01/29/21 1736 Trans: 01/29/21 1739 [facility] [id number] Interpreted by: MARK CAR MD Electronically signed by: Departure Impression Primary Impression: Right knee pain Qualified Codes: M25.561 - Pain in right knee Additional Impression: Effusion, right knee Disposition: 01 HOME, SELF-CARE Condition: Stable Departure-Patient Inst. Decision time for Depature: 17:57 Referrals: [facility] [place] Primary Care Physician AUSTYN LOZADA (Family) Primary Care Physician Patient Instructions: Knee Pain (DC) Add. Discharge Instructions: All discharge instructions reviewed with patient and/or family. Voiced understanding. You may use ice packs to the knee to reduce swelling 20 minutes/h as needed. Use assistive device for walking. You may take the pain medicine as prescribed. If you are not taking that medicine then you may take Tylenol/acetaminophen up to 1000 mg every 8 hours as needed for pain. Do not take both at the same time as they both have acetaminophen in them. Follow-up with your doctor for recheck and further evaluation and referral to orthopedics as needed. Return for worse pain, swelling, weakness, numbness or other concerns as needed. Scripts Hydrocodone Bit/Acetaminophen (HYDROcodone/APAP 5 MG/325 MG TAB) 1 Tab Tab 1 TAB PO Q6H for Pain, #10 TAB 0 Refills Prov: TYREE ERIC MD 01/29/21 Prednisone (Prednisone) 20 Mg Tab 40 MG PO DAILY, #10 TAB 0 Refills Prov: TYREE ERIC MD 01/29/21 Copy Copies To 1: SHREYAS SCHMITZ MD, TIMOTHY D MD Jan 29, 2021 17:47
[2021-01-29] MEDS ORDERED: PRD20T PO (17:59)
[2021-01-29] MEDS ORDERED: ACHD5005 PO (17:59)
== END 2021-01-29 18:19 | disposition home or self-care (01) ==
LOC: EDUNIT# 16:20 → ER 16:22
DX: M25.461 Effusion, right knee (principal); E11.9 Type 2 diabetes mellitus without complications; J44.9 Chronic obstructive pulmonary disease, unspecified; I50.9 Heart failure, unspecified; K21.9 Gastro-esophageal reflux disease without esophagitis; M79.7 Fibromyalgia; G89.29 Other chronic pain; M54.9 Dorsalgia, unspecified; G47.33 Obstructive sleep apnea (adult) (pediatric); F41.9 Anxiety disorder, unspecified; F32.9 Major depressive disorder, single episode, unspecified; E03.9 Hypothyroidism, unspecified; D64.9 Anemia, unspecified; Z86.718 Personal history of other venous thrombosis and embolism; Z99.89 Dependence on other enabling machines and devices; Z79.01 Long term (current) use of anticoagulants; Z79.890 Hormone replacement therapy; Z79.51 Long term (current) use of inhaled steroids; Z79.891 Long term (current) use of opiate analgesic; Z79.899 Other long term (current) drug therapy
CPT/HCPCS: 36415; 73562; 85610; 99283